=== PATIENT | female | born 1970 | race Caucasian/White ===

== ENCOUNTER 2021-05-13 10:36 | Emergency (ER) | payer SELFPAY ==
[~2021-05-13] VITALS: Ht 157.5 cm; Wt 45.4 kg
[2021-05-13 10:43] VITALS: BP 143/86
--- NOTE | 2021-05-13 11:38 | NUR ---
PATIENT LEFT WITHOUT BEING SEEN BY DR. SHEFFIELD. NO FURTHER CARE PROVIDED FOR PATIENT.
== END 2021-05-13 11:38 | disposition left against medical advice (07) ==
LOC: MED 10:36
DX: R53.1 Weakness (principal); Z53.21 Procedure and treatment not carried out due to patient leaving prior to being seen by health care provider